=== PATIENT | female | born 1985 | race African-American/Black ===

== ENCOUNTER 2020-11-12 12:44 | Emergency (ER) | payer MEDICAID ==
[~2020-11-12] VITALS: Ht 162.6 cm; Wt 61.2 kg
--- NOTE | 2020-11-12 12:44 | NUR ---
Patient BIBA BLS, transferred to bed 2. RN evaluating the patient at bedside.
--- NOTE | 2020-11-12 12:46 | NUR ---
[place] PD at bedside.
[2020-11-12 13:23] VITALS: BP 134/78
[2020-11-12] MEDS ORDERED: ONDANSETRON 4 MG/2 ML VIAL IVP ONE (13:30)
[2020-11-12] MEDS ORDERED: MORPHINE SULFATE 4 MG/ML SYR IVP ONE (13:30)
[2020-11-12 14:26] LABS: BASOPHILS # (AUTO) 0.1 K/uL (0.00-0.22); BASOPHILS % (AUTO) 1.2 % (0.0-2.0); EOSINOPHILS % (AUTO) 1.1 % (0.0-4.0); HEMATOCRIT 24.5 % (36-48); LYMPHOCYTES # (AUTO) 1.1 K/uL (2.5-16.5); LYMPHOCYTES % (AUTO) 26.6 % (20.5-51.1); MEAN CORPUSCULAR HEMOGLOBIN 29 pg (27-31); MEAN CORPUSCULAR HGB CONC 33 g/dL (33-37); MEAN CORPUSCULAR VOLUME 87.2 fL (80-94); MONOCYTES # (AUTO) 0.3 K/uL (0.8-1.0); MONOCYTES % (AUTO) 7.3 % (1.7-9.3); NEUTROPHILS # (AUTO) 2.6 K/uL (1.8-7.7); NEUTROPHILS % (AUTO) 63.8 % (42.2-75.2); PLATELET COUNT (AUTO) 78 K/uL (140-450); RED BLOOD CELL COUNT(AUTO) 2.81 MIL/uL (4.20-5.40); RED CELL DISTRIBUTION WIDTH 19.1 % (11.6-13.7); WHITE BLOOD COUNT (AUTO) 4.1 K/uL (4.8-10.8)
[2020-11-12 14:40] LABS: ALBUMIN 2.8 g/dL (3.4-5.0); ANION GAP 12.3 (8-16); TOTAL BILIRUBIN 1.6 mg/dL (0.0-1.0)
[2020-11-12 14:54] LABS: POTASSIUM 2.3 mmol/L (3.5-5.1)
[2020-11-12] MEDS ORDERED: POTASSIUM CHLORIDE 10 MEQ TABER PO ONE (14:55)
[2020-11-12] MEDS ORDERED: NACL 0.9% 2,500 ML IV ONE (14:55)
[2020-11-12] MEDS ORDERED: MAG SULF 2000 MG/WATER PREMIX 50 ML IV ONE (14:55)
[2020-11-12] MEDS ORDERED: POTA10TE30 PO (17:07)
[2020-11-12] MEDS ORDERED: NAPR-1704 PO (17:11)
[2020-11-12 17:53] VITALS: BP 113/65
--- NOTE | 2020-11-16 19:57 | NUR ---
LATE ENTRY- 0.9% NS BOLUS STARTED AT 1456 AND DISCONTINUED AT 1700. MAGNESIUM STARTED AT 1455 AND DISCONTINUED AT 1655.
== END 2020-11-12 17:54 | disposition left against medical advice (07) ==
LOC: MED 12:44
DX: H57.11 Ocular pain, right eye (principal); J34.89 Other specified disorders of nose and nasal sinuses; M54.2 Cervicalgia; R10.13 Epigastric pain; E11.9 Type 2 diabetes mellitus without complications; D64.9 Anemia, unspecified; Z79.899 Other long term (current) drug therapy; Z90.49 Acquired absence of other specified parts of digestive tract
CPT/HCPCS: 36415; 70450; 70486; 71045; 72125; 74177; 80053; 84702; 85025; 96361; 96365; 96366; 96375; 99285; J2270; J2405; J3475; J7030; Q9967